=== PATIENT | female | born 1980 | race Two or more races ===

== ENCOUNTER 2018-09-13 13:34 | Emergency (ER) | payer SELFPAY ==
--- NOTE | 2018-09-13 15:23 | ER Document Report ---
ED Medical Screen (RME) - General Chief Complaint: Headache Stated Complaint: HEADACHE Time Seen by Provider: 09/13/18 15:18 Notes: 38-year-old female with no past medical history presents to the emergency department with headache that started on Monday rated 10 out of 10. She states she was having intercourse with her boyfriend and at the point of climax had a severe headache that was maximum at onset starting in the occipital region that radiated bilaterally through the temporal area to the frontal area. She states she is only had one other headache that severe about 10 years ago that was a migraine but the characteristics of this headache is different. She initially had blurred vision and slept it off the rest of the night, the next day she had unremitting nausea and a stiff neck. The headache has not subsided, is currently not as severe as onset, and she is still nauseated. She currently complains of nausea, dizziness. She currently denies visual disturbances. Of note her sister observed that she thought her speech was slurred on . TRAVEL OUTSIDE OF THE [place] IN LAST 30 DAYS: No - Related Data Allergies/Adverse Reactions: No Known Allergies Allergy (Verified 09/13/18 13:35) Past Medical History - Social History Frequency of alcohol use: Occasional Drug Abuse: None Renal/ Medical History: Denies: Hx Peritoneal Dialysis Psychiatric Medical History: Reports: Hx Depression Physical Exam - Vital signs Vitals: Temp Pulse Resp BP Pulse Ox 98.8 F 92 16 124/82 98 09/13/18 13:48 09/13/18 13:48 09/13/18 13:48 09/13/18 13:48 09/13/18 13:48 - Neurological Neuro grossly intact: Yes Cognition: Normal Orientation: AAOx4 [place] Coma Scale Eye Opening: Spontaneous [place] Coma Scale Verbal: Oriented [place] Coma Scale Motor: Obeys Commands [place] Coma Scale Total: 15 Speech: Normal Motor strength normal: LUE, RUE, LLE, RLE Additional motor exam normals: Equal language translator. No: Pronator drift Course - Vital Signs Vital signs: Temp Pulse Resp BP Pulse Ox 98.8 F 92 16 124/82 98 09/13/18 13:48 09/13/18 13:48 09/13/18 13:48 09/13/18 13:48 09/13/18 13:48
[2018-09-13 15:52] LABS: ABSOLUTE BASOPHILS # (AUTO) 0.1 10^3/uL (0.0-0.2); ABSOLUTE LYMPHOCYTES (AUTO) 3.2 10^3/uL (0.5-4.7); ABSOLUTE MONOCYTES (AUTO) 0.7 10^3/uL (0.1-1.4); ABSOLUTE NEUT (AUTO) 10.3 10^3/uL (1.7-8.2); BASOPHILS % (AUTO) 0.6 % (0-2); EOSINOPHILS % (AUTO) 0.3 % (0-6); HEMATOCRIT 44.5 % (36.0-47.0); HEMOGLOBIN 15.3 g/dL (12.0-15.5); LYMPHOCYTES % (AUTO) 22.4 % (13-45); MEAN CORPUSCULAR HEMOGLOBIN 32.8 pg (27.0-33.4); MEAN CORPUSCULAR HGB CONC 34.4 g/dL (32.0-36.0); MEAN CORPUSCULAR VOLUME 95 fl (80-97); MONOCYTES % (AUTO) 5.1 % (3-13); PLATELET COUNT 288 10^3/uL (150-450); RED BLOOD COUNT 4.67 10^6/uL (3.72-5.28); RED CELL DISTRIBUTION WIDTH 13.8 % (11.5-14.0); SEGMENTED NEUTROPHILS % (AUTO) 71.6 % (42-78); TOTAL CELLS COUNTED % (AUTO) 100 %; WHITE BLOOD COUNT 14.4 10^3/uL (4.0-10.5)
[2018-09-13 16:09] LABS: ALANINE AMINOTRANSFERASE 89 U/L (9-52); ALBUMIN 4.4 g/dL (3.5-5.0); ALKALINE PHOSPHATASE 55 U/L (38-126); ANION GAP 11 (5-19); ASPARTATE AMINO TRANSFERASE 133 U/L (14-36); BILIRUBIN,DIRECT 0.2 mg/dL (0.0-0.4); BILIRUBIN,TOTAL 0.7 mg/dL (0.2-1.3); BLOOD UREA NITROGEN 10 mg/dL (7-20); CALCIUM 9.5 mg/dL (8.4-10.2); CARBON DIOXIDE 28 mmol/L (22-30); CHLORIDE 102 mmol/L (98-107); GLUCOSE 116 mg/dL (75-110); POTASSIUM 4.2 mmol/L (3.6-5.0); SODIUM 140.5 mmol/L (137-145); TOTAL PROTEIN 8.1 g/dL (6.3-8.2)
--- NOTE | 2018-09-13 16:15 | RADIOLOGY REPORT (SQ) ---
EXAM DESCRIPTION: CT HEAD WITHOUT COMPLETED DATE/TIME: 09/13/2018 4:00 pm REASON FOR STUDY: headache maximal at onset COMPARISON: None. TECHNIQUE: Axial images acquired through the brain without intravenous contrast. Images reviewed wi th bone, brain and subdural windows. Additional sagittal and coronal reconstructions were generated. Images stored on PACS. All CT scanners at this facility use dose modulation, iterative reconstruction, and/or weight based d osing when appropriate to reduce radiation dose to as low as reasonably achievable (ALARA). [facility]: Dose Right [facility]: CareDose [facility]: Dose Right [facility]: Teradose 4D [facility]: Smart O'ol Blue RADIATION DOSE: CT Rad equipment meets quality standard of care and radiation dose reduction techniq ues were employed. CTDIvol: 53.2 mGy. DLP: 1017 mGy-cm. mGy. LIMITATIONS: None. FINDINGS: VENTRICLES: Normal size and contour. CEREBRUM: No masses. No hemorrhage. No midline shift. No evidence for acute infarction. Normal gra y/white matter differentiation. No areas of low density in the white matter. CEREBELLUM: No masses. No hemorrhage. No alteration of density. No evidence for acute infarction. EXTRAAXIAL SPACES: No fluid collections. No masses. ORBITS AND GLOBE: No intra- or extraconal masses. Normal contour of globe without masses. CALVARIUM: No fracture. PARANASAL SINUSES: No fluid or mucosal thickening. SOFT TISSUES: No mass or hematoma. OTHER: No other significant finding. IMPRESSION: NORMAL BRAIN CT WITHOUT CONTRAST. EVIDENCE OF ACUTE STROKE: NO. COMMENT: Quality ID # [id number]: Final reports with documentation of one or more dose reduction techniques (e.g., Automated exposure control, adjustment of the mA and/or kV according to patient size, use of iterative reconstruction technique) TECHNICAL DOCUMENTATION: JOB ID: [id number] [employer]- All Rights Reserved Reading location - IP/workstation name: [email or web address]
[2018-09-13] MEDS ORDERED: METOCLOPRAMIDE HCL INJ/PF 10 MG/2 ML SDV IV ONE (19:22)
[2018-09-13] MEDS ORDERED: DIPHENHYDRAMINE HCL 50 MG/ML VIAL IV ONE (19:22)
[2018-09-13] MEDS ORDERED: NORMAL SALINE 1000 ML 1,000 ML IV ONE (19:22)
--- NOTE | 2018-09-13 20:16 | ER Document Report ---
ED Headache - General Chief Complaint: Headache Stated Complaint: HEADACHE Time Seen by Provider: 09/13/18 15:18 TRAVEL OUTSIDE OF THE [place] IN LAST 30 DAYS: No - HPI Notes: Patient is a 38-year-old female that presents to the emergency department for chief complaint of headache. Patient reports a sharp squeezing headache that radiates from her occiput around both temporal sides of her head. She states the headache started 4 days ago at 6 PM after intercourse. She states at 830 she then started having blurry vision nausea and vomiting. Headache has continued since onset 4 days ago. She states she has had relief intermittently when she takes Excedrin, Tylenol, or oxycodone but the headache then returned. She denies history of migraines recently but states she had remote migraines many years ago. She currently states her blurry vision has improved but she is feeling nauseated. She had one episode of vomiting today. She denies any numbness or weakness. She denies any known history of intracranial aneurysms. She denies any fevers or chills. She states her pain is worse when she moves and is relieved when she touches her chin to her chest Past Medical History: Depression, PTSD Past Surgical History: Negative Social History: Occasional alcohol. Denies tobacco and drug use Family History: Reviewed and noncontributory for presenting illness Allergies: Reviewed, see documented allergy list. REVIEW OF SYSTEMS: CONSTITUTIONAL : No fever No chills No diaphoresis No recent illness EENT: vision changes No congestion No sore throat CARDIOVASCULAR: No chest pain No palpitations RESPIRATORY: No shortness of breath No cough No difficulty breathing GASTROINTESTINAL: No abdominal pain nausea vomiting No diarrhea GENITOURINARY: No dysuria No hematuria No difficulty urinating MUSCULOSKELETAL: No back pain No leg pain No arm pain SKIN: No rashes No lesions LYMPHATIC: No swollen, enlarged glands. NEUROLOGICAL: No lightheadedness headache No weakness No paresthesias PSYCHIATRIC: No anxiety No depression PHYSICAL EXAMINATION: Vital signs reviewed, nursing noted reviewed. GENERAL: Well-appearing, well-nourished and in no acute distress. HEAD: Atraumatic, normocephalic. EYES: Eyes appear normal, extraocular movements intact, sclera anicteric, conjunctiva are normal. ENT: nares patent, oropharynx clear without exudates. Moist mucous membranes. NECK: No neck stiffness, normal range of motion, supple without lymphadenopathy, negative jolt sign LUNGS: Breath sounds clear to auscultation bilaterally and equal. No wheezes rales or rhonchi. HEART: Regular rate and rhythm without murmurs ABDOMEN: Soft, nontender, normoactive bowel sounds. No rebound, guarding, or rigidity. No masses appreciated. EXTREMITIES: Nontender, good range of motion, no pitting or edema. NEUROLOGICAL: No focal neurological deficits. Moves all extremities spontaneously Motor and sensory grossly intact on exam. PSYCH: Normal mood, normal affect. SKIN: Warm, Dry, normal turgor, no rashes or lesions noted on exposed skin - Related Data Allergies/Adverse Reactions: No Known Allergies Allergy (Verified 09/13/18 13:35) Past Medical History - Social History Smoking Status: Former Smoker Frequency of alcohol use: Occasional Drug Abuse: None Family History: Reviewed & Not Pertinent Patient has suicidal ideation: No Patient has homicidal ideation: No Renal/ Medical History: Denies: Hx Peritoneal Dialysis Psychiatric Medical History: Reports: Hx Depression Physical Exam - Vital signs Vitals: Temp Pulse Resp BP Pulse Ox 98.8 F 92 16 124/82 98 09/13/18 13:48 09/13/18 13:48 09/13/18 13:48 09/13/18 13:48 09/13/18 13:48 Course - Re-evaluation Re-evalutation: 09/13/18 20:12 Vitals reviewed. Nursing notes reviewed. Patient is afebrile with no signs of meningitis. She has a negative jolt sign. She does have a mild leukocytosis which is likely related to her vomiting. I do not suspect meningitis currently. Her headache was rapid in onset and after intercourse. CT brain was obtained today which showed no acute intracranial pathology. Patient was advised that she should receive lumbar puncture to further evaluate for subarachnoid hemorrhage. Patient is refusing lumbar puncture. She was given IV fluids, Benadryl, and Reglan and is having symptomatic improvement. She currently has no focal neurologic deficits. She understands that without lumbar puncture we cannot rule out intracranial hemorrhage. She states she would like to continue symptomatic management and follow with her doctor as an outpatient. She states she will return to the emergency room if symptoms are not resolving or worsen. She has capacity to make medical decisions and understands the risks of not performing the lumbar puncture. She also understands her options of receiving lumbar puncture which may lead to neurosurgery evaluation. Patient was encouraged to maintain hydration and return to the emergency room at any point for further care and lumbar puncture. 09/13/18 21:20 Patient reevaluated and had complete resolution of her symptoms. She is still declining lumbar puncture. At this point she is hemodynamically stable with no focal neurologic deficits. I encouraged her to return immediately if she has return of her symptoms for lumbar puncture. Laboratory 09/13/18 09/13/18 15:39 15:39 WBC 14.4 H RBC 4.67 Hgb 15.3 Hct 44.5 MCV 95 MCH 32.8 MCHC 34.4 RDW 13.8 Plt Count 288 Seg Neutrophils % 71.6 Lymphocytes % 22.4 Monocytes % 5.1 Eosinophils % 0.3 Basophils % 0.6 Absolute Neutrophils 10.3 H Absolute Lymphocytes 3.2 Absolute Monocytes 0.7 Absolute Eosinophils 0.0 Absolute Basophils 0.1 Sodium 140.5 Potassium 4.2 Chloride 102 Carbon Dioxide 28 Anion Gap 11 BUN 10 Creatinine 0.52 Est GFR ( Amer) > 60 Est GFR (Non-Af Amer) > 60 Glucose 116 H Calcium 9.5 Magnesium 1.8 Total Bilirubin 0.7 Direct Bilirubin 0.2 Neonat Total Bilirubin Not Reportable Neonat Direct Bilirubin Not Reportable Neonat Indirect Bili Not Reportable AST 133 H ALT 89 H Alkaline Phosphatase 55 Total Protein 8.[address] 09/13/18 15:27 IMPRESSION: NORMAL BRAIN CT WITHOUT CONTRAST. EVIDENCE OF ACUTE STROKE: NO. - Vital Signs Vital signs: Temp Pulse Resp BP Pulse Ox 98.8 F 92 16 124/82 98 09/13/18 13:48 09/13/18 13:48 09/13/18 13:48 09/13/18 13:48 09/13/18 13:48 - Laboratory Result Diagrams: 09/13/18 15:39 09/13/18 15:39 Laboratory results interpreted by me: 09/13/18 09/13/18 15:39 15:39 WBC 14.4 H Absolute Neutrophils 10.3 H Glucose 116 H AST 133 H ALT 89 H Discharge - Discharge Clinical Impression: Headache Qualifiers: Headache type: unspecified Headache chronicity pattern: acute headache Intractability: not intractable Qualified Code(s): R51 - Headache Condition: Stable Disposition: AGAINST MEDICAL ADVICE Instructions: Headache ([facility]) Additional Instructions: Without performing a lumbar puncture I cannot say for sure that you do not have bleeding around to her brain also called a subarachnoid hemorrhage. You can return to the emergency room at any point in time for lumbar puncture and further medical management. If there is an aneurysm there is a risk of bleeding may increase which could cause loss of life, limb, or permanent disability. If you have any new or worsening symptoms please return to the emergency room for further care as well. Call your primary care doctor tomorrow for close follow-up. Continue to drink water to stay well-hydrated Referrals: [facility] [Provider Group] - Follow up tomorrow
[2018-09-13 21:40] VITALS: BP 132/78
== END 2018-09-13 21:40 | disposition left against medical advice (07) ==
LOC: ER 13:34
DX: R51 Headache (principal); R11.10 Vomiting, unspecified; Z87.891 Personal history of nicotine dependence
CPT/HCPCS: 99284; 96374; 96375; 36415; 83735; 85025; 80053; 70450; J1200; J2765; J7030

== ENCOUNTER 2018-09-16 20:03 | Emergency (ER) | payer SELFPAY ==
[2018-09-16] MEDS ORDERED: LIDOCAINE 1% INJ-PF (10 MG/ML) 30 ML SDV INJ ONE (21:16)
[2018-09-16] MEDS ORDERED: MIDAZOLAM 2 MG/2 ML INJ IV ONE (21:28)
[2018-09-16] MEDS ORDERED: METOCLOPRAMIDE HCL INJ/PF 10 MG/2 ML SDV IV ONE (21:28)
[2018-09-16] MEDS ORDERED: RINGERS SOLUTION,LACTATED 1,000 ML IV ONE (21:28)
--- NOTE | 2018-09-16 21:30 | ER Document Report ---
ED General - General Chief Complaint: Neck Pain >24hrs old Stated Complaint: NECK PAIN Time Seen by Provider: 09/16/18 21:15 Notes: Patient is a 38-year-old female without chronic medical problems who presents with now 4 days of ongoing bilateral posterior scalp pain as well as diffuse headache. Describes the pain as a throbbing, aching, constant pain that does intermittently resolve but anytime she exerts herself such as having sexual int ercourse she has severe recurrence of the pain that precludes her from being able to complete having sexual intercourse. The patient was seen several days ago for similar, had a normal CT scan but declined lumbar puncture. Patient denies a history of similar symptoms prior to the past several days. Nothing seems to improve or worsen her symptoms. She has had associated nausea and vomiting. She denies focal weakness or numbness. No altered mental status or fever. TRAVEL OUTSIDE OF THE [place] IN LAST 30 DAYS: No - Related Data Allergies/Adverse Reactions: No Known Allergies Allergy (Verified 09/13/18 13:35) Past Medical History - General Information source: Patient - Social History Smoking Status: Never Smoker Frequency of alcohol use: None Drug Abuse: None Lives with: Spouse/Significant other Family History: Reviewed & Not Pertinent Renal/ Medical History: Denies: Hx Peritoneal Dialysis Psychiatric Medical History: Reports: Hx Depression Review of Systems - Review of Systems Notes: Constitutional: Negative for fever. HENT: Negative for sore throat. Eyes: Negative for visual changes. Cardiovascular: Negative for chest pain. Respiratory: Negative for shortness of breath. Gastrointestinal: Negative for abdominal pain, vomiting or diarrhea. Genitourinary: Negative for dysuria. Musculoskeletal: Negative for back pain. Skin: Negative for rash. Neurological: Positive for headache, neck pain 10 point ROS negative except as marked above and in HPI. Physical Exam - Vital signs Vitals: Temp Pulse Resp BP Pulse Ox 98.5 F 87 20 130/90 H 97 09/16/18 20:08 09/16/18 20:08 09/16/18 20:08 09/16/18 20:08 09/16/18 20:08 Interpretation: Normal Notes: PHYSICAL EXAMINATION: GENERAL: Appears mildly uncomfortable but in no acute distress HEAD: Atraumatic, normocephalic. EYES: Pupils equal round and reactive to light, extraocular movements intact, sclera anicteric, conjunctiva are normal. ENT: nares patent, oropharynx clear without exudates. Moist mucous membranes. NECK: Normal range of motion, supple without lymphadenopathy LUNGS: Breath sounds clear to auscultation bilaterally and equal. No wheezes rales or rhonchi. HEART: Regular rate and rhythm without murmurs ABDOMEN: Soft, nontender, normoactive bowel sounds. No guarding, no rebound. No masses appreciated. EXTREMITIES: Normal range of motion, no pitting or edema. No cyanosis. NEUROLOGICAL: Face symmetric. Tongue protrudes midline. Extraocular motions intact. Pupils are 2 mm and equally reactive. Normal speech, normal gait. 5 out of 5 strength in both the distal and proximal upper and lower extremities bilaterally. Sensation is grossly intact throughout. Finger to nose testing normal. Pronator drift normal. PSYCH: Moderately anxious SKIN: Warm, Dry, normal turgor, no rashes or lesions noted. Course - Re-evaluation Re-evalutation: 09/16/18 21:29 Patient presents with an ongoing headache with associated nausea, vomiting and neck pain after being seen 3 days ago for the same, declined lumbar puncture at that time as she did have a concerning headache pattern of an abrupt onset of headache after sexual intercourse. The patient on exam is having active nausea and dry heaving. Otherwise appears in no acute distress. She has consented to a lumbar puncture at this time. She is however quite anxious so an IV will be placed so anxiolysis can be provided as well as metoclopramide for nausea vomiting and headache. 09/16/18 22:52 LP was somewhat challenge but was able to be obtained on 4th attempt in L3-4 space. Tap was traumatic but there was clearing of the CSF as fluid collected. Specimen has been sent. 09/17/18 01:13 Patient unfortunately continues to have a persistent headache and neck pain. The lumbar puncture sample as noted above was traumatic but has shown decreased from tube 1-2 4 although to 4 remains above 580 red blood cells. Given that the patient continues to have pain we will proceed with a CTA of the head and neck to evaluate for any evidence of aneurysmal bleeding and to definitively exclude this diagnosis. 09/17/18 02:03 CTA of the head and neck are both unremarkable. The patient has had continued improvement of her symptoms although does continue to have some mild pain at the base of her scalp. At this time the exact etiology of her symptoms is uncertain but may be related to a muscle spasm or injury in the base of the skull and neck. I have advised conservative management at this time and feel that the most worrisome diagnoses have been excluded at this point. At this time will discharge with return precautions and follow-up recommendations. Verbal discharge instructions given a the bedside and opportunity for questions given. Medication warnings reviewed. Patient is in agreement with this plan and has verbalized understanding of return precautions and the need for primary care follow-up in the next 24-72 hours. - Vital Signs Vital signs: Temp Pulse Resp BP Pulse Ox 98.5 F 87 20 117/81 99 09/16/18 20:08 09/16/18 20:08 09/16/18 20:08 09/17/18 00:01 09/17/18 00:01 - Laboratory Result Diagrams: 09/16/18 21:43 09/16/18 21:43 Laboratory results interpreted by me: 09/16/18 09/16/18 09/16/18 21:43 21:43 22:45 WBC 15.5 H Absolute Neutrophils 11.2 H Sodium 136.2 L Chloride 96 L BUN 6 L Creatinine 0.47 L Glucose 118 H CSF WBC 44 H CSF RBC 38615 H CSF Total Protein 09/16/18 22:45 WBC Absolute Neutrophils Sodium Chloride BUN Creatinine Glucose CSF WBC CSF RBC CSF Total Protein 68 H - Diagnostic Test Radiology reviewed: Reports reviewed Procedures - Lumbar Puncture Lumbar puncture Consent obtained: Yes Lumbar puncture pre-procedure: Sterile PPE donned, Chloraprep applied, Sterile drapes applied Patient position: Sitting Needle size: 22 Lumbar puncture location: l3-4 Anesthetic type: 1% Lidocaine mL's of anesthetic: 8 Amount/type of drainage: 5 cc bloody/clear Number of attempts: 4 Complications: No Discharge - Discharge Clinical Impression: Neck pain Acute headache Qualifiers: Headache type: unspecified Intractability: intractable Qualified Code(s): R51 - Headache Nausea and vomiting Qualifiers: Vomiting type: unspecified Vomiting Intractability: non-intractable Qualified Code(s): R11.2 - Nausea with vomiting, unspecified Condition: Good Disposition: HOME, SELF-CARE Additional Instructions: You have been seen in the Emergency Department (ED) for a headache. Thankfully, your lumbar puncture does not suggest an acute infection and a confirmatory CAT scans with angiography of your head and neck are likewise normal. While the exact cause of your symptoms is uncertain it appears to be most likely from a strained muscle at the base of your neck. Take the Flexeril has been prescribed at night to help you sleep. Use ibuprofen 600 mg every 6 hours as needed for pain. You may use the Zofran that is been prescribed as needed for nausea or vomiting. As we have discussed, please follow up with your primary care doctor as soon as possible regarding today's ED visit and your headache symptoms. Call your doctor or return to the ED if you have a worsening headache, sudden and severe headache, confusion, slurred speech, facial droop, weakness or numbness in any arm or leg, extreme fatigue, or other symptoms that concern you. Prescriptions: Cyclobenzaprine HCl [Flexeril 10 mg Tablet] 10 mg PO TIDP PRN #15 tab PRN Reason: Ondansetron [Zofran Odt 4 mg Tablet] 1 - 2 tab PO Q4H PRN #15 tab.rapdis PRN Reason: For Nausea/Vomiting
[2018-09-16 22:02] LABS: ABSOLUTE BASOPHILS # (AUTO) 0.1 10^3/uL (0.0-0.2); ABSOLUTE LYMPHOCYTES (AUTO) 3.3 10^3/uL (0.5-4.7); ABSOLUTE MONOCYTES (AUTO) 0.9 10^3/uL (0.1-1.4); ABSOLUTE NEUT (AUTO) 11.2 10^3/uL (1.7-8.2); BASOPHILS % (AUTO) 0.4 % (0-2); EOSINOPHILS % (AUTO) 0.1 % (0-6); HEMATOCRIT 44.2 % (36.0-47.0); HEMOGLOBIN 15.2 g/dL (12.0-15.5); LYMPHOCYTES % (AUTO) 21.6 % (13-45); MEAN CORPUSCULAR HEMOGLOBIN 32.7 pg (27.0-33.4); MEAN CORPUSCULAR HGB CONC 34.4 g/dL (32.0-36.0); MEAN CORPUSCULAR VOLUME 95 fl (80-97); MONOCYTES % (AUTO) 5.6 % (3-13); PLATELET COUNT 324 10^3/uL (150-450); RED BLOOD COUNT 4.64 10^6/uL (3.72-5.28); RED CELL DISTRIBUTION WIDTH 13.7 % (11.5-14.0); SEGMENTED NEUTROPHILS % (AUTO) 72.3 % (42-78); TOTAL CELLS COUNTED % (AUTO) 100 %; WHITE BLOOD COUNT 15.5 10^3/uL (4.0-10.5)
[2018-09-16 22:04] LABS: ANION GAP 13 (5-19); BLOOD UREA NITROGEN 6 mg/dL (7-20); CALCIUM 9.6 mg/dL (8.4-10.2); CARBON DIOXIDE 27 mmol/L (22-30); CHLORIDE 96 mmol/L (98-107); GLUCOSE 118 mg/dL (75-110); POTASSIUM 3.8 mmol/L (3.6-5.0); SODIUM 136.2 mmol/L (137-145)
[2018-09-16 22:05] LABS: INTERNATIONAL RATION (INR) 1.01; PROTHROMBIN TIME 13.8 SEC (11.4-15.4)
[2018-09-16 22:06] LABS: PARTIAL THROMBOPLASTIN TIME 31.4 SEC (23.5-35.8)
[2018-09-16 23:24] LABS: GLUCOSE,CSF 61 mg/dL (40-70); PROTEIN,CSF 68 mg/dL (12-60)
[2018-09-17 00:29] LABS: COLOR TUBE 4 COLORLESS; CSF TUBE NUMBER 4
[2018-09-17 00:30] LABS: APPEARANCE TUBE 4 CLEAR
[2018-09-17 00:53] LABS: APPEARANCE TUBE 1 TURBID; APPEARANCE TUBE 2 CLOUDY; APPEARANCE TUBE 3 HAZY; COLOR TUBE 1 RED; COLOR TUBE 2 ORANGE; COLOR TUBE 3 PINK
[2018-09-17 00:56] LABS: WHITE BLOOD CELL,CSF 4 /uL (0-5)
[2018-09-17 00:59] LABS: APPEARANCE TUBE 1 TURBID; APPEARANCE TUBE 2 CLOUDY; APPEARANCE TUBE 3 HAZY; APPEARANCE TUBE 4 CLEAR; COLOR TUBE 1 RED; COLOR TUBE 2 ORANGE; COLOR TUBE 3 PINK; COLOR TUBE 4 COLORLESS; CSF TUBE NUMBER 1
[2018-09-17 01:01] LABS: RED BLOOD CELL,CSF 86015 /uL (0-10); WHITE BLOOD CELL,CSF 44 /uL (0-5)
--- NOTE | 2018-09-17 01:51 | RADIOLOGY REPORT (SQ) ---
CLINICAL HISTORY: ongoing headache/neck pain, elevated rbc lp COMPARISON: None. TECHNIQUE: CT NECK ANGIOGRAPHY WITHOUT THEN WITH IV CONTRAST, CT HEAD ANGIOGRAPHY WITHOUT THEN WITH IV CONTRAST on 09/17/2018 1:12 AM [employer]ER This exam was performed according to our departmental dose-optimization program, which includes automated exposure control, adjustment of the mA and/or kV according to patient size and/or use of iterative reconstruction technique. MIP reconstructions were generated. Stenoses are calculated by NASCET criteria. FINDINGS: Bilateral common carotid and internal carotid arteries are unremarkable. Vertebral arteries are diffusely patent. The vertebral basilar system is unremarkable. The anterior, middle and posterior cerebral arteries are diffusely patent. IMPRESSION: Unremarkable CT angiogram.
--- NOTE | 2018-09-17 01:51 | RADIOLOGY REPORT (SQ) ---
CLINICAL HISTORY: ongoing headache/neck pain, elevated rbc lp COMPARISON: None. TECHNIQUE: CT NECK ANGIOGRAPHY WITHOUT THEN WITH IV CONTRAST, CT HEAD ANGIOGRAPHY WITHOUT THEN WITH IV CONTRAST on 09/17/2018 1:12 AM [employer]INE [employer]ER This exam was performed according to our departmental dose-optimization program, which includes automated exposure control, adjustment of the mA and/or kV according to patient size and/or use of iterative reconstruction technique. MIP reconstructions were generated. Stenoses are calculated by NASCET criteria. FINDINGS: Bilateral common carotid and internal carotid arteries are unremarkable. Vertebral arteries are diffusely patent. The vertebral basilar system is unremarkable. The anterior, middle and posterior cerebral arteries are diffusely patent. IMPRESSION: Unremarkable CT angiogram.
[2018-09-17 02:36] VITALS: BP 128/79
[2018-09-17 21:08] LABS: RED BLOOD CELL,CSF 640 /uL (0-10)
== END 2018-09-17 02:36 | disposition home or self-care (01) ==
LOC: ER 20:03
PROC: 00JU3ZZ Inspection of Spinal Canal, Percutaneous Approach (ICD-10-PCS; principal; 2018-09-16)
DX: M54.2 Cervicalgia (principal); R51 Headache; R11.2 Nausea with vomiting, unspecified
CPT/HCPCS: 99284; 96361; 96374; 96375; 36415; 87070; 87205; 85025; 85610; 85730; 89050; 82945; 84157; 80048; 70496; 70498; 62270; J2250; J3490; J2765; J7120

== ENCOUNTER 2019-09-05 16:46 | Emergency (ER) | payer SELFPAY ==
[2019-09-05 17:07] VITALS: BP 137/90
== END 2019-09-05 22:06 | disposition left against medical advice (07) ==
LOC: ER 16:46
DX: Z53.21 Procedure and treatment not carried out due to patient leaving prior to being seen by health care provider (principal)

== ENCOUNTER 2019-09-05 22:38 | Emergency (ER) | payer SELFPAY ==
[2019-09-06 01:55] LABS: APPEARANCE,URINE SLIGHTLY-CLOUDY; BILIRUBIN,URINE NEGATIVE (NEGATIVE); COLOR,URINE YELLOW; GLUCOSE, URINE 50 mg/dL (NEGATIVE); KETONES,URINE TRACE mg/dL (NEGATIVE); LEUKOCYTE ESTERASE,URINE NEGATIVE (NEGATIVE); NITRITE,URINE NEGATIVE (NEGATIVE); PROTEIN,URINE 100 mg/dL (NEGATIVE); URINE SPECIFIC GRAVITY 1.026; UROBILINOGEN,URINE NEGATIVE mg/dL (<2.0)
[2019-09-06] MEDS ORDERED: NORMAL SALINE 1000 ML 1,000 ML IV ONE (08:43)
[2019-09-06] MEDS ORDERED: KETOROLAC TROMETHAMINE INJ/PF 30 MG/1 ML SDV IV ONE (08:43)
[2019-09-06] MEDS ORDERED: METHYLPREDNISOLONE INJ 125 MG/2 ML SDV IV ONE (08:43)
[2019-09-06] MEDS ORDERED: CYCLOBENZAPRINE HCL 10 MG TABLET PO ONE (09:22)
--- NOTE | 2019-09-06 09:22 | ER Document Report ---
ED General - General Chief Complaint: Back Pain Stated Complaint: LOWER BACK PAIN Time Seen by Provider: 09/06/19 08:09 Notes: 39-year-old female presents with left lower back pain that radiates down her left leg that started yesterday morning. Patient states it is worse with sitting. Patient denies any difficulty with urinating or defecating. Patient denies any saddle anesthesia. Patient states she thinks she twisted wrong but denies any other injury or trauma. Patient had one episode of vomiting after told she was going to have some blood drawn but denies any nausea or vomiting now. Patient denies any fever, IV drug use, chest pain, shortness of breath, abdominal pain. TRAVEL OUTSIDE OF THE [place] IN LAST 30 DAYS: No - Related Data Allergies/Adverse Reactions: No Known Allergies Allergy (Verified 09/13/18 13:35) Past Medical History - Social History Smoking Status: Never Smoker Chew tobacco use (# tins/day): No Frequency of alcohol use: Occasional Drug Abuse: None Family History: Reviewed & Not Pertinent Patient has suicidal ideation: No Patient has homicidal ideation: No Renal/ Medical History: Denies: Hx Peritoneal Dialysis Psychiatric Medical History: Reports: Hx Depression Past Surgical History: Reports: Hx Orthopedic Surgery - left ankle, right knee Review of Systems - Review of Systems Notes: Constitutional: Negative for fever. HENT: Negative for sore throat. Eyes: Negative for visual changes. Cardiovascular: Negative for chest pain. Respiratory: Negative for shortness of breath. Gastrointestinal: Negative for abdominal pain, vomiting or diarrhea. Genitourinary: Negative for dysuria. Musculoskeletal: Positive for back pain. Skin: Negative for rash. Neurological: Negative for headaches, weakness or numbness. 10 point ROS negative except as marked above and in HPI. Physical Exam - Vital signs Vitals: Temp Pulse Resp BP Pulse Ox 98.1 F 118 H 17 126/80 H 97 09/05/19 23:53 09/05/19 23:53 09/05/19 23:53 09/05/19 23:53 09/05/19 23:53 - Notes Notes: GENERAL: Well-appearing, well-nourished and uncomfortable. HEAD: Atraumatic, normocephalic. EYES: Extraocular movements intact, sclera anicteric, conjunctiva are normal. NECK: Normal range of motion, supple without lymphadenopathy or JVD. EXTREMITIES: Normal range of motion, no pitting or edema. No clubbing or cyanosis. BACK: No spinal tenderness. Tenderness to left lower lumbar paraspinal muscles. NEUROLOGICAL: Cranial nerves II through XII grossly intact. Normal speech, normal gait. PSYCH: Normal mood, normal affect. SKIN: Warm, Dry, normal turgor, no rashes or lesions noted. Course - Re-evaluation Re-evalutation: 09/06/19 09:20 No rapid progression of symptoms, systemic symptoms including fevers, chills, weight loss, history of recent bacterial infection, bilateral symptoms, numbness, weakness, difficulty walking, urinary retention or bowel incontinence, personal history of cancer, immunosuppression, diabetes, known AAA, or history of IV drug use. Exam is without point tenderness over vertebral bodies, pulsatile abdominal mass, and patient has symmetric and intact lower extremity strength, sensation. Pt is nontoxic in appearance. Afebrile. Pt given toradol/solumedrol and muscle relaxer and will reassess. 09/06/19 10:32 pain has improved. Patient describes as dull ache now. Patient to be discharged with ibuprofen, prednisone, and Flexeril with sedation warnings. Patient also given prescription for Nexium to prevent stomach ulcers. Patient given follow-up with PCP. Strict return precautions given. Patient voices understanding and agrees with plan of care. - Vital Signs Vital signs: Temp Pulse Resp BP Pulse Ox 98.2 F 87 18 118/75 96 09/06/19 09:12 09/06/19 09:12 09/06/19 09:12 09/06/19 09:12 09/06/19 09:12 - Laboratory Laboratory results interpreted by me: 09/06/19 01:35 Urine Protein 100 H Urine Glucose (UA) 50 H Urine Ketones TRACE H Discharge - Discharge Clinical Impression: Low back pain Qualifiers: Chronicity: acute Back pain laterality: left Sciatica presence: with sciatica Sciatica laterality: sciatica of left side Qualified Code(s): M54.42 - Lumbago with sciatica, left side Condition: Stable Disposition: HOME, SELF-CARE Instructions: Low Back Pain ([facility]), Warm Packs ([facility]) Additional Instructions: Please take medications as prescribed. Please take Nexium while taking prednisone and ibuprofen to prevent stomach ulcers. Please do not drink or drive while taking Flexeril as it will make you drowsy. Please follow-up with primary care doctor or the clinics listed in 3 to 5 days. Return immediately to ER if you start having any worsening symptoms, including difficulty urinating, difficulty defecating, numbness to your private area, fever, worsening pain, chest pain, shortness of breath, or any other symptoms that are concerning to you. Prescriptions: Prednisone [Deltasone] 20 mg PO BID #10 tablet Cyclobenzaprine HCl [Flexeril 10 mg Tablet] 10 mg PO TIDP PRN #15 tab PRN Reason: Ibuprofen [Motrin 800 mg Tablet] 800 mg PO Q8H PRN #30 tab PRN Reason: Esomeprazole Mag Trihydrate [Nexium] 40 mg PO DAILY #14 capsule.dr Forms: Return to Work Referrals: JESSICA SWAIN MD [COMMUNITY BASED STAFF] - Follow up in 3-5 days [facility] [Provider Group] - Follow up in 3-5 days
[2019-09-06 11:18] VITALS: BP 125/70
== END 2019-09-06 11:20 | disposition home or self-care (01) ==
LOC: ER 22:38
DX: M54.42 Lumbago with sciatica, left side (principal)
CPT/HCPCS: 99283; 96361; 96374; 96375; 36415; 84703; 81001; J2930; J1885; J7030